=== PATIENT | male | born 1960 | race Caucasian/White ===

== ENCOUNTER 2017-05-16 18:24 | Emergency (ER) | payer OTHER ==
[2017-05-16 18:30] VITALS: BMI 29.5
[2017-05-16 18:33] VITALS: TEMP 98.5
[2017-05-16] MEDS ORDERED: TDAP Vaccine 0.5 mL Syr IM ONE (18:51)
--- NOTE | 2017-05-16 18:51 | ED PDOC ---
Arrival/HPI - General Chief Complaint: Finger,Hand,&Wrist Time Seen by Provider: 05/16/17 18:42 Historian: Patient - History of Present Illness Narrative History of Present Illness (Text): 05/16/17 18:48 56 y/o male, pmh including thyroid disease/hyperlipidemia, last tetanus doesn't remember, nkda, c/o rt. hand thumb injury to the thumb and nail x 8 hours. Pt. stated that he accidentally put the rt. hand thumb between the car door and close on it, no difficulty bending or extending, no numbness or tingling, took tylenol for pain, no other medical or psychological complaints. Past Medical History - Provider Review Nursing Documentation Reviewed: Yes - Infectious Disease Hx of Infectious Diseases: None - Cardiac Hx Cardiac Disorders: Yes - Pulmonary Hx Respiratory Disorders: No - Neurological Hx Neurological Disorder: No - HEENT Hx HEENT Disorder: No - Renal Hx Renal Disorder: No - Endocrine/Metabolic Hx Endocrine Disorders: Yes Hx Diabetes Mellitus Type 2: (pre diabetic) Hx Hypothyroidism: Yes - Hematological/Oncological Hx Blood Disorders: Yes Hx Blood Transfusions: No Hx Blood Transfusion Reaction: No Other/Comment: thraot cancer- removed 07/2013 - Integumentary Hx Dermatological Disorder: No - Musculoskeletal/Rheumatological Hx Musculoskeletal Disorders: No - Gastrointestinal Hx Gastrointestinal Disorders: No - Genitourinary/Gynecological Hx Genitourinary Disorders: No - Psychiatric Hx Psychophysiologic Disorder: No Hx Substance Use: No - Surgical History Other/Comment: throat cancer removed-2012 - Anesthesia Hx Anesthesia: Yes Hx Anesthesia Reactions: No Hx Malignant Hyperthermia: No Family/Social History - Physician Review Nursing Documentation Reviewed: Yes Family/Social History: Unknown Family HX Smoking Status: Never Smoked Hx Alcohol Use: No Hx Substance Use: No Allergies/Home Meds Allergies/Adverse Reactions: Allergies No Known Allergies Allergy (Verified 05/16/17 18:30) Home Medications: Home Meds Medication Instructions Recorded Confirmed Simvastatin [Zocor] 20 mg PO QPM 04/08/13 05/16/17 Levothyroxine Sodium 162 mcg PO DAILY 03/19/16 05/16/17 Review of Systems - Review of Systems Constitutional: absent: Fatigue, Fevers Eyes: absent: Vision Changes ENT: absent: Hearing Changes Respiratory: absent: SOB, Cough Cardiovascular: absent: Chest Pain Gastrointestinal: absent: Abdominal Pain, Nausea, Vomiting Musculoskeletal: Arthralgias. absent: Back Pain, Neck Pain, Joint Swelling, Myalgias Skin: absent: Rash, Pruritis, Skin Lesions, Abscess, Ulcer Neurological: absent: Headache Physical Exam Vital Signs Reviewed: Yes Vital Signs Temp Pulse Resp BP Pulse Ox 05/16/17 21:29 66 18 132/69 98 05/16/17 18:32 98.5 F 69 19 139/88 96 Temperature: Afebrile Blood Pressure: Normal Pulse: Regular Respiratory Rate: Normal Appearance: Positive for: Well-Appearing, Non-Toxic, Comfortable Pain Distress: Mild Mental Status: Positive for: Alert and Oriented X 3 - Systems Exam Head: Present: Atraumatic, Normocephalic Pupils: Present: PERRL Extroacular Muscles: Present: EOMI Conjunctiva: Present: Normal Mouth: Present: Moist Mucous Membranes Neck: Present: Normal Range of Motion Respiratory/Chest: Present: Clear to Auscultation, Good Air Exchange. No: Respiratory Distress, Accessory Muscle Use Cardiovascular: Present: Regular Rate and Rhythm, Normal S1, S2. No: Murmurs Abdomen: Present: Normal Bowel Sounds. No: Tenderness, Distention, Peritoneal Signs Back: Present: Normal Inspection Upper Extremity: Present: Normal Inspection, Other (Rt. hand 1st digit thumb: visible nail root bed injury noted with detachment, 1.5cm laceration noted on the proximal nail bed region, FROM without limitation, sensation intact, motor 5 /5, +radial pulse, capillary refill< 2 seconds, neurovascular intact. ). No: Cyanosis, Edema Lower Extremity: Present: Normal Inspection. No: Edema Neurological: Present: GCS=15, Speech Normal, Motor Func Grossly Intact, Memory Normal Skin: Present: Warm, Dry, Normal Color. No: Rashes Psychiatric: Present: Alert, Oriented x 3, Normal Insight, Normal Concentration Medical Decision Making ED Course and Treatment: 05/16/17 18:54 -xray -keflex/motrin/tdap -xray 05/16/17 21:06 -case discussed with DR. lambert and agreed on the suture method. -sensation intact, motor 5/5, wound irrigated with 1000cc of normal saline, clean with betadine, 1% lidocaine with digital block on the injured thumb with 2cc, nail removed due to the laceration of the nail bed, 5-0 vicryl made 5 sutures, nail reattached back with 5-0 vicryl sutures, hemostasis obtained, injured site return back to the approximal original uninjured thumb, sensation intact, motor 5/5, bacitracin and gauze dressing, finger splint. -Discharge home with keflex, bactrim, finger splint, motrin, keep the dressing dry and clean for 2 days, follow up with your own pmd and hand specialist within 2 days, sutures use today is absorbable, return to the ER for any new or worsening signs or symptoms. - RAD Interpretation Radiology Orders: 05/16/17 18:51 HAND RIGHT THUMB [RAD] Stat comminuted fracture of the rt. distal phalanx thumb Plant Scientist: Radiologist - Medication Orders Current Medication Orders: Discontinued Medications Cephalexin Monohydrate (Keflex) 500 mg PO STAT STA PRN Reason: Protocol Stop: 05/16/17 18:52 Last Admin: 05/16/17 19:14 Dose: 500 mg Ibuprofen (Motrin Tab) 600 mg PO STAT STA Stop: 05/16/17 18:52 Last Admin: 05/16/17 19:14 Dose: 600 mg Lidocaine HCl (Lidocaine 1% (20ml)) Confirm Administered Dose 20 ml .ROUTE .STK- MED ONE Stop: 05/16/17 19:57 Tetanus/Reduced Diphtheria/Acell Pertussis (Boostrix Vaccine Inj) 0.5 ml IM .ONCE ONE Stop: 05/16/17 18:52 Last Admin: 05/16/17 19:13 Dose: 0.5 ml Trimethoprim/Sulfamethoxazole (Bactrim Ds Tab) 1 tab PO STAT STA PRN Reason: Protocol Stop: 05/16/17 21:07 Last Admin: 05/16/17 21:28 Dose: 1 tab - PA / BEAD STRINGER / Resident Statement / has reviewed & agrees with the documentation as recorded. Disposition/Present on Arrival - Present on Arrival Any Indicators Present on Arrival: No History of DVT/PE: No History of Uncontrolled Diabetes: No Urinary Catheter: No History of Decub. Ulcer: No History Surgical Site Infection Following: None - Disposition Have Diagnosis and Disposition been Completed?: Yes Diagnosis: Thumb injury, Injury to thumb (nail), Nailbed laceration, finger, Thumb fracture Disposition: HOME/ ROUTINE Disposition Time: 18:55 Patient Plan: Discharge Condition: IMPROVED Additional Instructions: -Discharge home with keflex, bactrim, finger splint, motrin, keep the dressing dry and clean for 2 days, follow up with your own pmd and hand specialist within 2 days, sutures use today is absorbable, return to the ER for any new or worsening signs or symptoms. Prescriptions: Bacitracin Ointment [Bacitracin] 1 appful TOP BID #15 g Cephalexin [cephalexin] 500 mg PO QID #40 cap Ibuprofen [Motrin Tab] 600 mg PO QID PRN #24 tab PRN Reason: Other Sulfamethoxazole/Trimethoprim [Bactrim Ds Tablet] 1 each PO BID #20 tablet Referrals: Bam Link MD [Primary Care Provider] - Follow up with primary Brock Mcgowan MD [Staff Provider] - Follow up with primary Forms: [facility] (French), WORK NOTE
[2017-05-16] MEDS ORDERED: Lidocaine 1% Inj (20ml) ONE (19:56)
[2017-05-16] MEDS ORDERED: Tmp-Smz 800 mg-160 mg DS Tab PO STA (21:06)
[2017-05-16 21:30] VITALS: BP 132/69; PULSE 66; RESP 18; O2SAT 98
--- NOTE | 2017-05-17 08:18 | RAD ---
PROCEDURE: Right Thumb radiographs. HISTORY: rt .hand thumb injury x 1 day COMPARISON: None. TECHNIQUE: AP radiograph of the right hand, as well as spot oblique and lateral images of thumb were obtained. FINDINGS: RIGHT THUMB: Comminuted nondisplaced fracture mid aspect right distal phalanx. No other fracture identified. Remainder of the right hand (as seen on the AP view) grossly unremarkable. JOINTS: Normal. SOFT TISSUES: Normal. OTHER FINDINGS: None. IMPRESSION: Comminuted, nondisplaced fracture right distal phalanx.
== END 2017-05-16 21:29 | disposition home or self-care (01) ==
LOC: ED 18:24
DX: S61.111A Laceration without foreign body of right thumb with damage to nail, initial encounter (principal); S62.525A Nondisplaced fracture of distal phalanx of left thumb, initial encounter for closed fracture; X58.XXXA Exposure to other specified factors, initial encounter; Z23 Encounter for immunization; E78.5 Hyperlipidemia, unspecified